=== PATIENT | female | born 1975 | race Hispanic/Latino ===

== ENCOUNTER → 2020-08-07 | Outpatient (CLI) | payer BC | LOC: RAD 07:15 | PROVIDERS: ATTEND Family Medicine | DX: R05 Cough (principal) | CPT/HCPCS: 71046 ==

== ENCOUNTER 2023-07-09 07:28 | Emergency (ER) | payer BC, OTHER ==
[~2023-07-09] VITALS: Ht 154.9 cm; Wt 72.6 kg
[2023-07-09] MEDS ORDERED: FAMOTIDINE 20 MG/2 ML VIAL IV STA (07:49)
[2023-07-09] MEDS ORDERED: SODIUM CHLORIDE 0.9% 1000ML 1,000 ML IV ONE (08:00)
[2023-07-09] MEDS ORDERED: FAMOTIDINE 20 MG/2 ML VIAL IV ONE (08:21)
[2023-07-09] MEDS ORDERED: SODIUM CHLORIDE 0.9% 1000ML 1,000 ML ONE (08:21)
[2023-07-09] MEDS ORDERED: IOPAMIDOL 370 MG/ML 100 ML INFUS..BTL INJ ONE (08:29)
[2023-07-09] MEDS ORDERED: MAGNESIUM/ALUMINUM/SIMETHICONE 30 ML UDC PO ONE (08:45)
[2023-07-09] MEDS ORDERED: MAGNESIUM/ALUMINUM/SIMETHICONE 30 ML UDC ONE (08:50)
[2023-07-09 09:06] VITALS: O2SAT 99
[2023-07-09] MEDS ORDERED: PEPCID20 MG PO (09:10)
[2023-07-09] MEDS ORDERED: MAALOX MAXIMUM355 ML PO (09:11)
== END 2023-07-09 09:25 | disposition home or self-care (01) ==
LOC: FSED 07:33
DX: R10.13 Epigastric pain (principal); K29.70 Gastritis, unspecified, without bleeding; D25.9 Leiomyoma of uterus, unspecified; R00.1 Bradycardia, unspecified; R94.4 Abnormal results of kidney function studies
CPT/HCPCS: 74177; 80053; 81003; 81025; 82553; 84484; 85025; 99284; J7030; Q9967; 93005